=== PATIENT | female | born 1995 | race Caucasian/White ===

== ENCOUNTER 2017-10-14 13:11 | Emergency (ER) | payer OTHER ==
[~2017-10-14] VITALS: Ht 167.6 cm; Wt 55.8 kg
[2017-10-14] MEDS ORDERED: 0.9 % SODIUM CHLORIDE 10 ML DISP.SYRIN. IV PRN (13:45)
[2017-10-14 13:52] LABS: BASO % 0 % (0-3); EOS # 0.3 x10^3/uL (0.0-0.7); EOS % 3 % (0-3); HEMATOCRIT 46.4 % (36.0-47.0); HEMOGLOBIN 15.5 g/dL (12.0-15.5); LYMPH # 1.8 x10^3/uL (1.0-4.8); LYMPH % 24 % (24-48); MEAN CORPUSCULAR HEMOGLOBIN 31 pg (25-35); MEAN CORPUSCULAR HGB CONC 33 g/dL (31-37); MEAN CORPUSCULAR VOLUME 92 fL (79-100); MONO # 0.3 x10^3/uL (0.0-1.1); MONO % 4 % (0-9); NEUT # 5.1 x10^3uL (1.8-7.7); NEUT % 69 % (31-73); PLATELET COUNT 317 x10^3/uL (140-400); RED BLOOD COUNT 5.07 x10^6/uL (3.50-5.40); RED CELL DISTRIBUTION WIDTH 13.2 % (11.5-14.5); WHITE BLOOD COUNT 7.5 x10^3/uL (4.0-11.0)
[2017-10-14 14:05] LABS: ALBUMIN 4.2 g/dL (3.4-5.0); ALBUMIN/GLOBULIN RATIO 1.1 (1.0-1.7); CALCIUM 9.4 mg/dL (8.5-10.1); CREATININE 0.8 mg/dL (0.6-1.0); GFR 89.7; POTASSIUM 3.5 mmol/L (3.5-5.1); TOTAL BILIRUBIN 0.5 mg/dL (0.2-1.0); TOTAL PROTEIN 8.1 g/dL (6.4-8.2)
[2017-10-14] MEDS ORDERED: IV NORMAL SALINE 1,000ML 1,000 ML IV SCH (14:15)
[2017-10-14] MEDS ORDERED: ONDANSETRON PF 4 MG/2 ML VIAL. IV ONE (14:15)
--- NOTE | 2017-10-14 14:37 | RAD ---
US PELVIS W/TV Clinical Indication: LLQ pain Comparison: None. TECHNIQUE: Real-time ultrasound imaging of the pelvis using transabdominal and transvaginal window is performed. Findings: Anteverted uterus. Uterus measures 8.1 x 3.4 x 4.6 cm. No focal abnormality. The endometrial stripe is normal measuring 2 mm. Right ovary measures 3.4 x 1.6 x 2 cm. Left ovary measures 3.1 x 2.4 x 1.4 cm. There is normal blood flow in the ovaries. There are small bilateral follicular cysts. No evidence of adnexal mass. No pelvic free fluid. IMPRESSION: Normal pelvic ultrasound. Electronically signed by: Jono Porter MD (10/14/2017 2:34 PM) [id number]
[2017-10-14 14:43] VITALS: BP 94/58
[2017-10-14 14:50] LABS: BILIRUBIN,URINE NEG (NEG); CLARITY,URINE CLEAR; COLOR,URINE YELLOW; GLUCOSE,URINE NEG (NEG); UROBILINOGEN,URINE 0.2 mg/dL (0.2 mg/dL)
[2017-10-14 14:51] LABS: BACTERIA,URINE FEW /HPF (0-FEW); NITRITE,URINE NEG (NEG); RBC,URINE 0 /HPF (0-2); SQUAMOUS EPITHELIAL CELL,UR FEW /LPF
[2017-10-14] MEDS ORDERED: ONDA4TAB10 SL (15:24)
[2017-10-14] MEDS ORDERED: NAPR-683 PO (15:24)
--- NOTE | 2017-10-14 15:24 | PHYS DOC ---
Past History Past Medical History: Other Past Surgical History: No Surgical History Alcohol Use: None Drug Use: None Adult General Chief Complaint Chief Complaint: ABDOMINAL PAIN HPI HPI 21-year-old female patient with history of multiple chronic problems complaining of episodes of diarrhea for the last 4 or 5 days and states she had 5 or 6 episodes of loose stool every day. Patient complaining of nausea without vomiting and fever and chills and states since last night she had left lower quadrant cramping pain with radiation to her back and rated her pain 6/10. Patient states she was evaluated for STD with negative test one week ago and denies weakness. Review of Systems Review of Systems Constitutional: Denies fever or chills [] Eyes: Denies change in visual acuity, redness, or eye pain [] HENT: Denies nasal congestion or sore throat [] Respiratory: Denies cough or shortness of breath [] Cardiovascular: No additional information not addressed in HPI [] GI: Reports abdominal pain, nausea, diarrhea [] : Denies dysuria or hematuria [] Musculoskeletal: Denies back pain or joint pain [] Integument: Denies rash or skin lesions [] Neurologic: Denies headache, focal weakness or sensory changes [] Endocrine: Denies polyuria or polydipsia [] All other systems were reviewed and found to be within normal limits, except as documented in this note. Current Medications Current Medications Current Medications Medications (Trade) Dose Ordered Sig/David Start Time Stop Time Status Last Admin Dose Admin Ondansetron HCl (Zofran) 4 mg 1X ONCE 10/14/17 14:15 10/14/17 14:16 DC 10/14/17 14:15 4 MG Sodium Chloride (Normal Saline Flush) 10 ml QSHIFT PRN 10/14/17 13:45 Allergies Allergies Allergies Coded Allergies Type Severity Reaction Last Updated Verified No Known Drug Allergies 10/14/17 No Physical Exam Physical Exam Constitutional: Well developed, well nourished, no acute distress, non-toxic appearance. [] HENT: Normocephalic, atraumatic, bilateral external ears normal, oropharynx moist, no oral exudates, nose normal. [] Eyes: PERRLA, EOMI, conjunctiva normal, no discharge. [] Neck: Normal range of motion, no tenderness, supple, no stridor. [] Cardiovascular:Heart rate regular rhythm, no murmur [] Lungs & Thorax: Bilateral breath sounds clear to auscultation [] Abdomen: Bowel sounds normal, soft, no tenderness, no masses, no pulsatile masses. [] Skin: Warm, dry, no erythema, no rash. [] Back: No tenderness, no CVA tenderness. [] Extremities: No tenderness, no cyanosis, no clubbing, ROM intact, no edema. [] Neurologic: Alert and oriented X 3, normal motor function, normal sensory function, no focal deficits noted. [] Psychologic: Affect normal, judgement normal, mood normal. [] Current Patient Data Vital Signs Vital Signs Date Time Temp Pulse Resp B/P (MAP) Pulse Ox O2 Delivery O2 Flow Rate FiO2 10/14/17 14:43 103 18 94/58 (70) 98 Room Air 10/14/17 13:48 98.1 Lab Results Laboratory Tests Test 10/14/17 13:38 10/14/17 13:43 10/14/17 14:25 White Blood Count 7.5 x10^3/uL (4.0-11.0) Red Blood Count 5.07 x10^6/uL (3.50-5.40) Hemoglobin 15.5 g/dL (12.0-15.5) Hematocrit 46.4 % (36.0-47.0) Mean Corpuscular Volume 92 fL (79-100) Mean Corpuscular Hemoglobin 31 pg (25-35) Mean Corpuscular Hemoglobin Concent 33 g/dL (31-37) Red Cell Distribution Width 13.2 % (11.5-14.5) Platelet Count 317 x10^3/uL (140-400) Neutrophils (%) (Auto) 69 % (31-73) Lymphocytes (%) (Auto) 24 % (24-48) Monocytes (%) (Auto) 4 % (0-9) Eosinophils (%) (Auto) 3 % (0-3) Basophils (%) (Auto) 0 % (0-3) Neutrophils # (Auto) 5.1 x10^3uL (1.8-7.7) Lymphocytes # (Auto) 1.8 x10^3/uL (1.0-4.8) Monocytes # (Auto) 0.3 x10^3/uL (0.0-1.1) Eosinophils # (Auto) 0.3 x10^3/uL (0.0-0.7) Basophils # (Auto) 0.0 x10^3/uL (0.0-0.2) Sodium Level 142 mmol/L (136-145) Potassium Level 3.5 mmol/L (3.5-5.1) Chloride Level 103 mmol/L (98-107) Carbon Dioxide Level 26 mmol/L (21-32) Anion Gap 13 (6-14) Blood Urea Nitrogen 16 mg/dL (7-20) Creatinine 0.8 mg/dL (0.6-1.0) Estimated GFR (Cockcroft-Gault) 89.7 BUN/Creatinine Ratio 20 (6-20) Glucose Level 103 mg/dL (70-99) H Calcium Level 9.4 mg/dL (8.5-10.1) Total Bilirubin 0.5 mg/dL (0.2-1.0) Aspartate Amino Transferase (AST) 24 U/L (15-37) Alanine Aminotransferase (ALT) 33 U/L (14-59) Alkaline Phosphatase 47 U/L (46-116) Total Protein 8.1 g/dL (6.4-8.2) Albumin 4.2 g/dL (3.4-5.0) Albumin/Globulin Ratio 1.1 (1.0-1.7) Lipase 190 U/L (73-393) POC Urine HCG, Qualitative hcg negative (Negative) Urine Collection Type Unknown Urine Color Yellow Urine Clarity Clear Urine pH 5.5 Urine Specific [place] 1.025 Urine Protein Neg (NEG-TRACE) Urine Glucose (UA) Neg mg/dL (NEG) Urine Ketones (Stick) Neg mg/dL (NEG) Urine Blood Neg (NEG) Urine Nitrite Neg (NEG) Urine Bilirubin Neg (NEG) Urine Urobilinogen Dipstick 0.2 mg/dL (0.2 mg/dL) Urine Leukocyte Esterase Neg (NEG) Urine RBC 0 /HPF (0-2) Urine WBC 1-4 /HPF (0-4) Urine Squamous Epithelial Cells Few /LPF Urine Bacteria Few /HPF (0-FEW) Urine Mucus Mod /LPF EKG EKG [] Radiology/Procedures Radiology/Procedures [][address] [place] [id number] IMAGING REPORT Signed PATIENT: MERT BUSTOS ACCOUNT: [id number] : 1995 LOCATION: ER AGE: 21 SEX: F EXAM STATUS: REG ER ORD. PHYSICIAN: GINA SAMSON MD REASON: LLQ pain with history of ovarian cyst PROCEDURE: US PELVIS W/TV US PELVIS W/TV Clinical Indication: LLQ pain Comparison: None. TECHNIQUE: Real-time ultrasound imaging of the pelvis using transabdominal and transvaginal window is performed. Findings: Anteverted uterus. Uterus measures 8.1 x 3.4 x 4.6 cm. No focal abnormality. The endometrial stripe is normal measuring 2 mm. Right ovary measures 3.4 x 1.6 x 2 cm. Left ovary measures 3.1 x 2.4 x 1.4 cm. There is normal blood flow in the ovaries. There are small bilateral follicular cysts. No evidence of adnexal mass. No pelvic free fluid. IMPRESSION: Normal pelvic ultrasound. Electronically signed by: Jono Porter MD (10/14/2017 2:34 PM) [id number] DICTATED AND SIGNED BY: JONO PORTER MD DATE: 10/14/17 1431 Course & Med Decision Making Course & Med Decision Making Pertinent Labs and Imaging studies reviewed. (See chart for details) discharge: I've spoken with the patient and/or caregivers. I've explained the patient's condition, diagnosis and treatment plan based on information available to me at this time. I've answered the patient's and/or caregivers questions and addressed any concerns. The patient and/or caregivers have a good understanding the patient's diagnosis, condition and treatment plan as can be expected at this point. Vital signs have been stabilized. The patient's condition is stable for discharge from the emergency department. The patient will pursue further outpatient evaluation with her primary care provider or other designated consulting physician as outlined in the discharge instructions. Patient and/or caregivers are agreeable to this plan of care and follow-up instructions have been explained in detail. The patient and/or caregivers have received these instructions in written format and expressed understanding of these discharge instructions. The patient and her caregivers are aware that if any significant change in condition or worsening of symptoms should prompt him to immediately return to this of the closest emergency department. If an emergent department is not readily available I would encourage him to call 911. [] Omayraon Disclaimer Dragon Disclaimer This electronic medical record was generated, in whole or in part, using a voice recognition dictation system. Departure Departure: Impression: Primary Impression: Left lower quadrant pain Additional Impression: Diarrhea Disposition: 01 HOME, SELF-CARE (at 1522) Condition: IMPROVED Referrals: BAILEY ARGUETA DO (PCP) Patient Instructions: Abdominal Pain, Diarrhea, Diarrhea, [id number] Additional Instructions: Drink plenty of liquids Follow-up with your primary care physician in 3-5 days Return to ER if not getting better Scripts Naproxen (NAPROSYN) 500 Mg Tablet 1 TAB PO BID, #14 TAB 2 Refills Prov: GINA SAMSON MD 10/14/17 Ondansetron (ZOFRAN ODT) 4 Mg Tab.rapdis 1 TAB SL Q8HRS, #15 TAB Prov: GINA SAMSON MD 10/14/17 Problem Qualifiers GINA SAMSON MD Oct 14, 2017 15:24
--- NOTE | 2017-10-15 17:17 | EKG ---
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
== END 2017-10-14 15:46 | disposition home or self-care (01) ==
LOC: ER 13:11
DX: R19.7 Diarrhea, unspecified (principal); R10.32 Left lower quadrant pain
CPT/HCPCS: 36415; 76830; 76856; 80053; 81001; 81025; 83690; 85025; 96361; 96374; 99285; J2405; J7030

== ENCOUNTER 2018-02-03 10:43 | Emergency (ER) | payer OTHER ==
[~2018-02-03] VITALS: Ht 149.9 cm; Wt 55.8 kg
[~2018-02-03 10:43] MED LIST: NAPR-683 PO; ONDA4TAB10 SL
[2018-02-03] MEDS ORDERED: IV NORMAL SALINE 1,000ML 1,000 ML IV SCH (10:57)
--- NOTE | 2018-02-03 11:07 | PHYS DOC ---
Past History Past Medical History: Asthma, Kidney Infection, Kidney Stones, UTI Past Surgical History: No Surgical History Alcohol Use: None Drug Use: None Adult General Chief Complaint Chief Complaint: URINARY RETENTION HPI HPI Patient is a 22-year-old female presents to the emergency department for evaluation. She states that for the past 2 days she has had some "urinary hesitancy", as she has a sensation where she is unable to fully empty her bladder. She states that she has had some blood when she is able to express some urine. She does report some dysuria as well. She states that she has had urinary tract infections in the past, but has also had kidney stones. She does report some flank pain primarily on the left side. She has not had any vomiting. She has not had any vaginal discharge, vaginal bleeding, or abnormal skin or genital lesions. She has not had any genital area pain. She does have a Mirena IUD in place. Urinating seems to worsen her symptoms. There are no alleviating factors to her symptoms. Review of Systems Review of Systems Constitutional: Denies fever or chills [] Eyes: Denies change in visual acuity, redness, or eye pain [] HENT: Denies nasal congestion or sore throat [] Respiratory: Denies cough or shortness of breath [] Cardiovascular: Denies chest pain.[] GI: Denies abdominal pain, nausea, vomiting, bloody stools or diarrhea [] : As per history of present illness.[] Musculoskeletal: Denies back pain or joint pain [] Integument: Denies rash or skin lesions [] Neurologic: Denies headache, focal weakness or sensory changes [] Endocrine: Denies polyuria or polydipsia [] All other systems were reviewed and found to be within normal limits, except as documented in this note. Current Medications Current Medications Current Medications Medications (Trade) Dose Ordered Sig/David Start Time Stop Time Status Last Admin Dose Admin Ketorolac Tromethamine (Toradol) 30 mg 1X ONCE 02/03/18 11:00 02/03/18 11:01 UNV Sodium Chloride 1,000 ml @ 1,000 mls/hr Q1H 02/03/18 10:57 02/03/18 11:56 UNV Allergies Allergies Allergies Coded Allergies Type Severity Reaction Last Updated Verified No Known Drug Allergies 10/14/17 No Physical Exam Physical Exam PHYSICAL EXAM: CONSTITUTIONAL: Well developed, well nourished HEAD: normocephalic, atraumatic EENT: PERRL, EOMI. Conjunctivae normal color, sclerae non-icteric; moist mucous membranes. NECK: Supple, non-tender; no meningismus. LUNGS: Lungs CTA, breathing even and unlabored. Normal air movement. HEART: Regular rate and rhythm, no murmur CHEST: No deformity; non-tender ABDOMEN: There is very mild suprapubic tenderness to palpation. The remainder of the abdomen is soft, and non-tender, no masses or bruits. EXTREM: Normal ROM; no deformity, no calf tenderness. Normal pulses palpable in all extremities. There is no pedal edema. SKIN: No rash; no diaphoresis NEURO: Alert; normal speech and cognition; CN's grossly intact; strength grossly intact without focal deficit. BACK: There is mild left-sided CVA TTP. GENITOURINARY: Normal external genitalia. There is a trace amount of thick whitish vaginal discharge suggestive of candidiasis, that any other cervical or vaginal discharge. No genital lesions were visualized. Bimanual examination was not performed. Exam was performed in the presence of the patient's nurse, Erin. Current Patient Data Lab Results Patient's labs have been reviewed. White blood cell count was noted to be elevated, remainder of labs are unremarkable. Urinalysis shows too numerous to count white and red cells. Wet prep is suggestive of BV. EKG EKG [] Radiology/Procedures Radiology/Procedures [PROCEDURE: CT ABDOMEN PELVIS WO CONTRAST Examination: CT of the abdomen pelvis without contrast History: History of left flank pain, urinary tract infection COMPARISON: None available TECHNIQUE: Axial CT images of the abdomen pelvis were performed without contrast. Coronal and sagittal reformats are performed Exposure: One or more of the following individualized dose reduction techniques were utilized for this examination: 1. Automated exposure control 2. Adjustment of the mA and/or kV according to patient size 3. Use of iterative reconstruction technique FINDINGS: The visualized bibasilar lungs are clear. No evidence of free air identified in the abdomen. The evaluation of the solid organs is limited due to lack of IV contrast. The evaluation of bowel is limited due to lack of oral contrast. The visualized noncontrasted liver, spleen, adrenals grossly appears unremarkable. The gallbladder is mildly distended. The stomach is mildly distended. The visualized pancreas grossly appears unremarkable. The small bowel is nondilated. The appendix is normal. Feces and gas noted in the colon. There is minimal thickening of the rectal wall with minimal surrounding fat stranding. Small amount of free fluid identified in the pelvis. Urinary bladder is mildly distended. Is minimal fat stranding identified in the adnexa. No evidence of intrarenal collecting system calculi or hydronephrosis identified. No evidence of lytic bony destructive lesion. IMPRESSION: 1. No evidence of intrarenal collecting system calculi or hydronephrosis. 2. Small amount of free fluid identified in the pelvis. There is minimal questionable fat stranding identified in the pelvis , and about the rectum, nonspecific. Correlate for pelvic inflammatory disease or proctitis. ] Course & Med Decision Making Course & Med Decision Making Pertinent Labs and Imaging studies reviewed. (See chart for details) [12:20 PM:] The patient's condition remained stable. I discussed test results with the patient. She states she did have an STD check about 2 weeks ago, but is willing to undergo another one for evaluation of PID, although this is not considered likely. She does admit to having some painful bowel movements, and given the inflammation on CT scan I do feel she warrants GI evaluation and she will be referred to GI. Her symptoms certainly could be consistent with a urinary tract infection and she'll be treated as such. The importance of close follow-up was discussed in detail with the patient. The importance of close follow-up for further evaluation if hematuria persists was discussed in detail with the patient. Dragon Disclaimer Dragon Disclaimer This electronic medical record was generated, in whole or in part, using a voice recognition dictation system. Departure Departure: Impression: Primary Impression: UTI (urinary tract infection) Additional Impression: Hematuria Disposition: 01 HOME, SELF-CARE Condition: STABLE Referrals: BAILEY ARGUETA DO (PCP) Patient Instructions: Bacterial Vaginosis, Hematuria, Adult, Proctitis, Urinary Tract Infection Additional Instructions: Follow-up with Dr. Kahlil Allen, gastroenterology, , for further evaluation. Scripts Phenazopyridine Hcl (PYRIDIUM) 200 Mg Tablet 200 MG PO BID for 3 Days, #6 TAB Prov: JEAN BULLOCK MD 02/03/18 Sulfamethoxazole/Trimethoprim (BACTRIM 400-80 MG TABLET) 1 Each Tablet 1 TAB PO BID, #14 TAB Prov: JEAN BULLOCK MD 02/03/18 Problem Qualifiers JEAN BULLOCK MD Feb 03, 2018 11:07
[2018-02-03 11:19] LABS: BASO # 0.1 x10^3/uL (0.0-0.2); BASO % 0 % (0-3); EOS # 0.3 x10^3/uL (0.0-0.7); EOS % 2 % (0-3); HEMATOCRIT 41.3 % (36.0-47.0); HEMOGLOBIN 13.8 g/dL (12.0-15.5); LYMPH # 1.6 x10^3/uL (1.0-4.8); LYMPH % 10 % (24-48); MEAN CORPUSCULAR HEMOGLOBIN 30 pg (25-35); MEAN CORPUSCULAR HGB CONC 34 g/dL (31-37); MEAN CORPUSCULAR VOLUME 90 fL (79-100); MONO # 0.5 x10^3/uL (0.0-1.1); MONO % 3 % (0-9); NEUT # 13.3 x10^3uL (1.8-7.7); NEUT % 84 % (31-73); PLATELET COUNT 286 x10^3/uL (140-400); RED BLOOD COUNT 4.58 x10^6/uL (3.50-5.40); RED CELL DISTRIBUTION WIDTH 12.5 % (11.5-14.5); WHITE BLOOD COUNT 15.8 x10^3/uL (4.0-11.0)
[2018-02-03 11:28] LABS: PREG TEST PT QUAL NEGATIVE (NEG)
[2018-02-03] MEDS ORDERED: KETOROLAC 30 MG/ML VIAL. IV ONE (11:30)
[2018-02-03 11:33] LABS: ALBUMIN 3.8 g/dL (3.4-5.0); CREATININE 0.7 mg/dL (0.6-1.0); GFR 103.7; TOTAL BILIRUBIN 0.3 mg/dL (0.2-1.0); TOTAL PROTEIN 7.5 g/dL (6.4-8.2)
[2018-02-03 11:39] LABS: % BANDS 2 % (0-9); % BASOS 1 % (0-3); % EOS 3 % (0-5); % LYMPHS 7 % (24-48); % MONOS 2 % (0-10); % SEGS 85 % (35-66)
[2018-02-03 11:40] LABS: PLT ESTIMATE ADEQUATE (ADEQUATE); TOXIC GRANULATION SLIGHT; TOXIC VACUOLATION SLIGHT
--- NOTE | 2018-02-03 12:01 | RAD ---
Examination: CT of the abdomen pelvis without contrast History: History of left flank pain, urinary tract infection COMPARISON: None available TECHNIQUE: Axial CT images of the abdomen pelvis were performed without contrast. Coronal and sagittal reformats are performed Exposure: One or more of the following individualized dose reduction techniques were utilized for this examination: 1. Automated exposure control 2. Adjustment of the mA and/or kV according to patient size 3. Use of iterative reconstruction technique FINDINGS: The visualized bibasilar lungs are clear. No evidence of free air identified in the abdomen. The evaluation of the solid organs is limited due to lack of IV contrast. The evaluation of bowel is limited due to lack of oral contrast. The visualized noncontrasted liver, spleen, adrenals grossly appears unremarkable. The gallbladder is mildly distended. The stomach is mildly distended. The visualized pancreas grossly appears unremarkable. The small bowel is nondilated. The appendix is normal. Feces and gas noted in the colon. There is minimal thickening of the rectal wall with minimal surrounding fat stranding. Small amount of free fluid identified in the pelvis. Urinary bladder is mildly distended. Is minimal fat stranding identified in the adnexa. No evidence of intrarenal collecting system calculi or hydronephrosis identified. No evidence of lytic bony destructive lesion. IMPRESSION: 1. No evidence of intrarenal collecting system calculi or hydronephrosis. 2. Small amount of free fluid identified in the pelvis. There is minimal questionable fat stranding identified in the pelvis , and about the rectum, nonspecific. Correlate for pelvic inflammatory disease or proctitis. Electronically signed by: Phil Razo MD (02/03/2018 11:58 AM) [id number]
[2018-02-03 12:08] LABS: BILIRUBIN,URINE NEG (NEG); CLARITY,URINE TURBID; COLOR,URINE YELLOW; GLUCOSE,URINE NEG (NEG); NITRITE,URINE NEG (NEG); UROBILINOGEN,URINE 0.2 mg/dL (0.2 mg/dL)
[2018-02-03 12:09] LABS: BACTERIA,URINE MOD /HPF (0-FEW); RBC,URINE >40 /HPF (0-2); SQUAMOUS EPITHELIAL CELL,UR FEW /LPF; WBC,URINE >40 /HPF (0-4)
[2018-02-03] MEDS ORDERED: SULF1TAB23 PO (12:26)
[2018-02-03] MEDS ORDERED: cefTRIAXone IV Push 1 GM VIAL. IVP ONE (12:45)
[2018-02-03] MEDS ORDERED: PHEN-318 PO (12:55)
[2018-02-03 13:10] VITALS: BP 102/55
[2018-02-03] MEDS ORDERED: metroNIDAZOLE 500 MG TABLET ONE (13:11)
[2018-02-03] MEDS ORDERED: metroNIDAZOLE 500 MG TABLET PO ONE (13:15)
[2018-02-03] MEDS ORDERED: PHENAZOPYRIDINE 200 MG TABLET. PO ONE (13:30)
[2018-02-04 14:13] LABS: CHLAMYDIA PROBE Negative (Negative)
== END 2018-02-03 13:20 | disposition home or self-care (01) ==
LOC: ER 10:43
DX: N39.0 Urinary tract infection, site not specified (principal); R31.9 Hematuria, unspecified; J45.909 Unspecified asthma, uncomplicated; Z87.442 Personal history of urinary calculi; Z87.440 Personal history of urinary (tract) infections
CPT/HCPCS: 36415; 74176; 80053; 81001; 83690; 84703; 85007; 85025; 87086; 87491; 87591; 96374; 96375; 99285; J0696; J1885; Q0111; 87186; J7030

== ENCOUNTER 2018-03-30 15:37 | Emergency (ER) | payer OTHER ==
[~2018-03-30] VITALS: Ht 149.9 cm; Wt 55.3 kg
[~2018-03-30 15:37] MED LIST changes: +PHEN-318 PO; +SULF1TAB23 PO
[2018-03-30 15:40] VITALS: BP 112/67
[2018-03-30] MEDS ORDERED: MUPI15CR TP (16:07)
--- NOTE | 2018-03-30 16:24 | ED.ADGEN ---
Past History Past Medical History: Asthma, Kidney Infection, Kidney Stones, UTI Past Surgical History: No Surgical History Alcohol Use: None Drug Use: None Adult General Chief Complaint Chief Complaint Left forearm, lesion HPI HPI Patient is a 19-year-old female seen at an outside emergency department 2 days ago and had stated in her left before meals space who presents with superficial skin tear from Band-Aid placed over IV insertion site. Patient states that Band- Aid tore her skin when removed. No surrounding swelling, erythema, tenderness. Patient was seen at outside facility for dehydration.No other acute symptoms or complaints. No other acute symptoms or complaints.[] Review of Systems Review of Systems Review of symptoms as per history of present illness. All other review symptoms are negative. All other systems were reviewed and found to be within normal limits, except as documented in this note. Allergies Allergies Allergies Coded Allergies Type Severity Reaction Last Updated Verified No Known Drug Allergies 10/14/17 No Physical Exam Physical Exam Constitutional: Well developed, well nourished, no acute distress, non-toxic appearance. [] Extremities: Superficial skin tear, approximately 3 mm left before meals space with mild erythema, no surrounding swelling erythema streaking or weeping.[] Neurologic: Alert and oriented X 3, normal motor function, normal sensory function, no focal deficits noted. [] Psychologic: Affect normal, judgement normal, mood normal. [] EKG EKG [] Radiology/Procedures Radiology/Procedures [] Course & Med Decision Making Course & Med Decision Making Pertinent Labs and Imaging studies reviewed. (See chart for details) [Anterior with concern of possible early cellulitis. Recommend topical antibiotics, PCP follow up. ] Final Impression Final Impression [1 . Skin tear to left forearm ] Draglissette Disclaimer Dragon Disclaimer This electronic medical record was generated, in whole or in part, using a voice recognition dictation system. MORRIS EDUARDO DO Mar 30, 2018 16:24
== END 2018-03-30 16:10 | disposition home or self-care (01) ==
LOC: ER 15:37
DX: S51.812A Laceration without foreign body of left forearm, initial encounter (principal); J45.909 Unspecified asthma, uncomplicated; Z87.440 Personal history of urinary (tract) infections; Z87.442 Personal history of urinary calculi; X58.XXXA Exposure to other specified factors, initial encounter; Y93.89 Activity, other specified; Y92.89 Other specified places as the place of occurrence of the external cause; Y99.8 Other external cause status
CPT/HCPCS: 99283

== ENCOUNTER 2018-05-15 17:13 | Emergency (ER) | payer OTHER ==
[~2018-05-15] VITALS: Ht 149.9 cm; Wt 55.3 kg
[2018-05-15 17:13] VITALS: BP 118/68
[~2018-05-15 17:13] MED LIST changes: +MUPI15CR TP
--- NOTE | 2018-05-15 18:10 | PHYS DOC ---
Past History Past Medical History: Other Past Surgical History: No Surgical History Alcohol Use: None Drug Use: None Adult General Chief Complaint Chief Complaint: SKIN PROBLEM HPI HPI 22-year-old female presents with anal pain. The patient was recently diagnosed with an ear infection and treated with amoxicillin for 10 days. She developed some diarrhea the last few days of this. She continues to have 7-15 stools a day. She started to have itching and pain 3 days ago. It has gotten worse and she is now very raw and tender. She has not had any vaginal itching. She denies any anal intercourse. She has not had vaginal intercourse in a week. The patient tried a topical steroid today but has only used one dose. Patient denies fever or chills. She has no other complaints. Review of Systems Review of Systems Constitutional: Denies fever or chills [] Eyes: Denies change in visual acuity, redness, or eye pain [] HENT: Denies nasal congestion or sore throat [] Respiratory: Denies cough or shortness of breath [] Cardiovascular: No additional information not addressed in HPI [] GI: Denies abdominal pain, nausea, vomiting, bloody stools or diarrhea [] : Denies dysuria or hematuria [] Musculoskeletal: Denies back pain or joint pain [] Integument: Painful skin around the anus[] Neurologic: Denies headache, focal weakness or sensory changes [] Endocrine: Denies polyuria or polydipsia [] All other systems were reviewed and found to be within normal limits, except as documented in this note. Allergies Allergies Allergies Coded Allergies Type Severity Reaction Last Updated Verified No Known Drug Allergies 10/14/17 No Physical Exam Physical Exam Constitutional: Well developed, well nourished, no acute distress, non-toxic appearance. [] HENT: Normocephalic, atraumatic, bilateral external ears normal, oropharynx moist, no oral exudates, nose normal. [] Eyes: PERRLA, EOMI, conjunctiva normal, no discharge. [] Neck: Normal range of motion, no tenderness, supple, no stridor. [] Cardiovascular:Heart rate regular rhythm, no murmur [] Lungs & Thorax: Bilateral breath sounds clear to auscultation [] Abdomen: Bowel sounds normal, soft, no tenderness, no masses, no pulsatile masses. [] Skin: Erythematous confluent rash with satellite lesions around the anus and inferior outer labia. [] Back: No tenderness, no CVA tenderness. [] Extremities: No tenderness, no cyanosis, no clubbing, ROM intact, no edema. [] Neurologic: Alert and oriented X 3, normal motor function, normal sensory function, no focal deficits noted. [] Psychologic: Affect normal, judgement normal, mood normal. [] EKG EKG [] Radiology/Procedures Radiology/Procedures [] Course & Med Decision Making Course & Med Decision Making Pertinent Labs and Imaging studies reviewed. (See chart for details) The patient's anus appears to be consistent with yeast infection. I will treat her w q48 hours for 3 doses. She is stable for discharge at this time. I recommended Tucks pads for comfort. [] Dragon Disclaimer Dragon Disclaimer This electronic medical record was generated, in whole or in part, using a voice recognition dictation system. Departure Departure: Referrals: NON,STAFF (PCP) MORRIS HOANG DO May 15, 2018 18:10
[2018-05-15] MEDS ORDERED: FLUC150T PO (18:13)
== END 2018-05-15 18:29 | disposition home or self-care (01) ==
LOC: ER 17:13
DX: B37.89 Other sites of candidiasis (principal); R19.7 Diarrhea, unspecified
CPT/HCPCS: 99283

== ENCOUNTER 2018-12-02 21:29 | Emergency (ER) | payer OTHER ==
[~2018-12-02] VITALS: Ht 152.4 cm; Wt 63.5 kg
[~2018-12-02 21:29] MED LIST changes: +FLUC150T PO
[2018-12-02] MEDS ORDERED: IV NORMAL SALINE 1,000ML 1,000 ML IV SCH (22:10)
[2018-12-02] MEDS ORDERED: ONDANSETRON PF 4 MG/2 ML VIAL. IV ONE (22:15)
[2018-12-02 22:54] LABS: BASO % 0 % (0-3); EOS # 0.1 x10^3/uL (0.0-0.7); EOS % 1 % (0-3); HEMATOCRIT 35.9 % (36.0-47.0); HEMOGLOBIN 12.2 g/dL (12.0-15.5); LYMPH # 1.7 x10^3/uL (1.0-4.8); LYMPH % 18 % (24-48); MEAN CORPUSCULAR HEMOGLOBIN 31 pg (25-35); MEAN CORPUSCULAR HGB CONC 34 g/dL (31-37); MEAN CORPUSCULAR VOLUME 90 fL (79-100); MONO # 0.5 x10^3/uL (0.0-1.1); MONO % 5 % (0-9); NEUT # 7.2 x10^3uL (1.8-7.7); NEUT % 76 % (31-73); PLATELET COUNT 262 x10^3/uL (140-400); RED CELL DISTRIBUTION WIDTH 13.2 % (11.5-14.5); WHITE BLOOD COUNT 9.5 x10^3/uL (4.0-11.0)
[2018-12-02 23:01] LABS: BACTERIA,URINE FEW /HPF (0-FEW); BILIRUBIN,URINE NEG (NEG); CLARITY,URINE CLEAR; COLOR,URINE YELLOW; GLUCOSE,URINE NEG (NEG); NITRITE,URINE NEG (NEG); RBC,URINE OCC /HPF (0-2); SQUAMOUS EPITHELIAL CELL,UR OCC /LPF; UROBILINOGEN,URINE 0.2 mg/dL (0.2 mg/dL)
[2018-12-02 23:07] LABS: ALBUMIN 2.8 g/dL (3.4-5.0); ALBUMIN/GLOBULIN RATIO 0.7 (1.0-1.7); CALCIUM 8.8 mg/dL (8.5-10.1); CREATININE 0.5 mg/dL (0.6-1.0); GFR 151.6; POTASSIUM 3.5 mmol/L (3.5-5.1); TOTAL BILIRUBIN 0.1 mg/dL (0.2-1.0); TOTAL PROTEIN 6.8 g/dL (6.4-8.2)
[2018-12-02] MEDS ORDERED: NITR100C62 PO (23:39)
[2018-12-02] MEDS ORDERED: ONDA4TAB12 PO (23:39)
--- NOTE | 2018-12-02 23:39 | PHYS DOC ---
Past History Past Medical History: UTI, Other Past Surgical History: No Surgical History Alcohol Use: None Drug Use: None Adult General Chief Complaint Chief Complaint: VOMITING IN HPI HPI Patient is a 23 year old female who presents with complaint of fever, vomiting, and body aches. The patient states that she is 18 weeks . States that she started having fever, vomiting, loose stools, and abdominal cramping that started yesterday and has worsened today. Denies any known sick contacts. States that she is currently following and [facility] for her care. Was last seen at her ten-week appointment but has not been seen recently. Denies any urinary symptoms. Has had decreased oral intake due to nausea and vomiting. States that she is getting abdominal cramping just above her umbilicus. Denies any vaginal bleeding, pelvic pain, or abnormal vaginal discharge. Has not taken any medications for her symptoms. Review of Systems Review of Systems Constitutional: Fever, chills[] Eyes: Denies change in visual acuity, redness, or eye pain [] HENT: Denies nasal congestion or sore throat [] Respiratory: Denies cough or shortness of breath [] Cardiovascular: Denies chest pain or edema[] GI: Nausea, vomiting, diarrhea, abdominal cramps[] : Denies dysuria or hematuria [] Musculoskeletal: Denies back pain or joint pain [] Integument: Denies rash or skin lesions [] Neurologic: Denies headache, focal weakness or sensory changes [] All other systems were reviewed and found to be within normal limits, except as documented in this note. Current Medications Current Medications Current Medications Medications (Trade) Dose Ordered Sig/[facility] Start Time Stop Time Status Last Admin Dose Admin Ondansetron HCl (Zofran) 4 mg 1X ONCE 12/02/18 22:15 12/02/18 22:22 DC 12/02/18 22:46 4 MG Sodium Chloride 1,000 ml @ 1,000 mls/hr Q1H 12/02/18 22:10 12/02/18 23:09 DC 12/02/18 22:47 1,000 MLS/HR Allergies Allergies Allergies Coded Allergies Type Severity Reaction Last Updated Verified No Known Drug Allergies 10/14/17 No Physical Exam Physical Exam Constitutional: Well developed, well nourished, no acute distress, non-toxic appearance. [] HENT: Normocephalic, atraumatic, bilateral external ears normal, oropharynx moist, no oral exudates, nose normal. [] Eyes: PERRLA, EOMI, conjunctiva normal, no discharge. [] Neck: Normal range of motion, no tenderness, supple, no stridor. [] Cardiovascular:Heart rate regular rhythm, no murmur [] Lungs & Thorax: Bilateral breath sounds clear to auscultation [] Abdomen: Bowel sounds normal, soft, no tenderness, no masses, no pulsatile masses. [] Skin: Warm, dry, no erythema, no rash. [] Back: No tenderness, no CVA tenderness. [] Extremities: No tenderness, no cyanosis, no clubbing, ROM intact, no edema. [] Neurologic: Alert and oriented X 3, normal motor function, normal sensory f unction, no focal deficits noted. [] Psychologic: Affect normal, judgement normal, mood normal. [] Current Patient Data Lab Results Laboratory Tests Test 12/02/18 22:15 12/02/18 22:35 Urine Collection Type Unknown Urine Color Yellow Urine Clarity Clear Urine pH 5.5 Urine Specific [place] >=1.030 Urine Protein Neg (NEG-TRACE) Urine Glucose (UA) Neg mg/dL (NEG) Urine Ketones (Stick) Neg mg/dL (NEG) Urine Blood Trace (NEG) Urine Nitrite Neg (NEG) Urine Bilirubin Neg (NEG) Urine Urobilinogen Dipstick 0.2 mg/dL (0.2 mg/dL) Urine Leukocyte Esterase Trace (NEG) Urine RBC Occ /HPF (0-2) Urine WBC 5-10 /HPF (0-4) Urine Squamous Epithelial Cells Occ /LPF Urine Bacteria Few /HPF (0-FEW) Urine Mucus Slight /LPF White Blood Count 9.5 x10^3/uL (4.0-11.0) Red Blood Count 4.00 x10^6/uL (3.50-5.40) Hemoglobin 12.2 g/dL (12.0-15.5) Hematocrit 35.9 % (36.0-47.0) L Mean Corpuscular Volume 90 fL (79-100) Mean Corpuscular Hemoglobin 31 pg (25-35) Mean Corpuscular Hemoglobin Concent 34 g/dL (31-37) Red Cell Distribution Width 13.2 % (11.5-14.5) Platelet Count 262 x10^3/uL (140-400) Neutrophils (%) (Auto) 76 % (31-73) H Lymphocytes (%) (Auto) 18 % (24-48) L Monocytes (%) (Auto) 5 % (0-9) Eosinophils (%) (Auto) 1 % (0-3) Basophils (%) (Auto) 0 % (0-3) Neutrophils # (Auto) 7.2 x10^3uL (1.8-7.7) Lymphocytes # (Auto) 1.7 x10^3/uL (1.0-4.8) Monocytes # (Auto) 0.5 x10^3/uL (0.0-1.1) Eosinophils # (Auto) 0.1 x10^3/uL (0.0-0.7) Basophils # (Auto) 0.0 x10^3/uL (0.0-0.2) Sodium Level 139 mmol/L (136-145) Potassium Level 3.5 mmol/L (3.5-5.1) Chloride Level 105 mmol/L (98-107) Carbon Dioxide Level 24 mmol/L (21-32) Anion Gap 10 (6-14) Blood Urea Nitrogen 9 mg/dL (7-20) Creatinine 0.5 mg/dL (0.6-1.0) L Estimated GFR (Cockcroft-Gault) 151.6 BUN/Creatinine Ratio 18 (6-20) Glucose Level 86 mg/dL (70-99) Calcium Level 8.8 mg/dL (8.5-10.1) Total Bilirubin 0.1 mg/dL (0.2-1.0) L Aspartate Amino Transferase (AST) 19 U/L (15-37) Alanine Aminotransferase (ALT) 21 U/L (14-59) Alkaline Phosphatase 42 U/L (46-116) L Total Protein 6.8 g/dL (6.4-8.2) Albumin 2.8 g/dL (3.4-5.0) L Albumin/Globulin Ratio 0.7 (1.0-1.7) L Lipase 157 U/L (73-393) EKG EKG Not performed[] Radiology/Procedures Radiology/Procedures Not performed[] Course & Med Decision Making Course & Med Decision Making Pertinent Labs and Imaging studies reviewed. (See chart for details) Patient was given IV fluids and Zofran in the emergency department with improvement in symptoms. heart rate was measured by Doppler at 157 bpm. Blood work was unremarkable. Urinalysis showed bacteriuria and pyuria. Prescribed Macrobid for 7 day course of treatment. Despite this I think the patient's symptoms are primarily secondary to viral gastrointestinal infection. Was also prescribed Zofran for nausea. Advised follow-up with doctor in the next 4 days for reevaluation and return to emergency department for any worsening symptoms. Patient was understanding and in agreement with treatment plan.[] Dragon Disclaimer Dragon Disclaimer This electronic medical record was generated, in whole or in part, using a voice recognition dictation system. Departure Departure: Impression: Primary Impression: Nausea and vomiting Additional Impressions: Diarrhea Second trimester Abdominal cramps UTI (urinary tract infection) Disposition: 01 HOME, SELF-CARE Condition: IMPROVED Referrals: NON,STAFF (PCP) Patient Instructions: Abdominal Pain During , Diarrhea, Nausea and Vomiting, - Urinary Tract Infection Additional Instructions: Follow-up with your POLITICAL ANTHROPOLOGIST in the next 4 days for reevaluation. Return to emergency department for any worsening symptoms. Scripts Ondansetron (ONDANSETRON ODT) 4 Mg Tab.rapdis 1 TAB PO PRN Q6-8HRS PRN for NAUSEA/VOMITING, #16 TAB Prov: ELIANA PRICE MD 12/02/18 Nitrofurantoin Monohyd/M-Cryst (MACROBID 100 MG CAPSULE) 100 Mg Capsule 1 CAP PO BID, #14 CAP Prov: ELIANA PRICE MD 12/02/18 Problem Qualifiers Primary Impression: Nausea and vomiting Vomiting type: unspecified Vomiting Intractability: non-intractable Qualified Codes: R11.2 - Nausea with vomiting, unspecified Additional Impressions: Diarrhea Diarrhea type: presumed infectious Qualified Codes: R19.7 - Diarrhea, unspecified UTI (urinary tract infection) Urinary tract infection type: site unspecified Hematuria presence: without hematuria Qualified Codes: N39.0 - Urinary tract infection, site not specified ELIANA PRICE MD December 02, 2018 23:39
[2018-12-02 23:50] VITALS: BP 115/59
== END 2018-12-02 23:50 | disposition home or self-care (01) ==
LOC: ER 21:29
DX: O23.42 Unspecified infection of urinary tract in pregnancy, second trimester (principal); O21.9 Vomiting of pregnancy, unspecified; R19.7 Diarrhea, unspecified; Z87.440 Personal history of urinary (tract) infections; Z3A.18 18 weeks gestation of pregnancy
CPT/HCPCS: 36415; 80053; 81001; 83690; 85025; 87086; 96361; 96374; 99285; J2405; J7030

== ENCOUNTER 2019-03-26 22:25 | Emergency (ER) | payer OTHER ==
[~2019-03-26] VITALS: Ht 152.4 cm; Wt 83.0 kg
[~2019-03-26 22:25] MED LIST changes: +NITR100C62 PO; +ONDA4TAB12 PO
--- NOTE | 2019-03-26 22:28 | ED.ADGEN ---
Past History Past Medical History: Anxiety, UTI, Other Past Surgical History: No Surgical History Alcohol Use: None Drug Use: Marijuana Adult General Chief Complaint Chief Complaint ".. I got this bump on my belly button.. I ve had it for over a month... but it is more tender tonight... and sticking out... I am .. and due on May.06....I ve all ready had 7 miscarries.. ....".. My Ob said to go to the ER... " [facility] HPI Patient is a 23 year old female who presents with above hx and complaints of umbilicus hernia. Pt. has had hernia for past month. Patient states however the last week or so it's become more tender. And more prominent. Patient normally follows at [facility]. Patient has had previous total 8 pregnancies 6 miscarriages and 1 live and current . No history of STDs. Has had 8 lifetime sexual partners. Last follow of her OB approximate 4 weeks ago. She is due May 06. Patient primary OB is Dr Hinkle . Patient is Follow-up appointment is April 08. Patient denies any intake bad food. Patient denies any trauma. Patient denies any specific ill contacts. Patient denies any vaginal discharge or bleeding. Patient did have a normal stool today. Patient is taking vitamin. Review of Systems Review of Systems Constitutional: Denies fever or chills [] Eyes: Denies change in visual acuity, redness, or eye pain [] HENT: Denies nasal congestion or sore throat [] Respiratory: Denies cough or shortness of breath [] Cardiovascular: No additional information not addressed in HPI [] GI: She complains of umbilicus abdominal pain, nausea. Denies, vomiting, bloody stools or diarrhea [] : Denies dysuria or hematuria [] Musculoskeletal: Denies back pain or joint pain [] Integument: Denies rash or skin lesions [] Neurologic: Denies headache, focal weakness or sensory changes [] Endocrine: Denies polyuria or polydipsia [] All other systems were reviewed and found to be within normal limits, except as documented in this note. Family History Family History Noncontributory Current Medications Current Medications Current Medications Medications (Trade) Dose Ordered Sig/[facility] Start Time Stop Time Status Last Admin Dose Admin Acetaminophen/ Hydrocodone Bitart (Lortab 5/325) 2 tab 1X ONCE 03/27/19 01:00 03/27/19 01:46 DC 03/27/19 01:02 2 TAB Lactated Ringer's 1,000 ml @ 1,000 mls/hr Q1H 03/27/19 00:47 03/27/19 01:46 DC 03/27/19 01:08 1,000 MLS/HR Ondansetron HCl (Zofran) 4 mg 1X ONCE 03/27/19 01:00 03/27/19 01:46 DC 03/27/19 01:08 4 MG Allergies Allergies Allergies Coded Allergies Type Severity Reaction Last Updated Verified No Known Drug Allergies 10/14/17 No Physical Exam Physical Exam Constitutional: Moderate acute distress, non-toxic appearance. [] HENT: Normocephalic, atraumatic, bilateral external ears normal, oropharynx moist, no oral exudates, nose normal. [] Eyes: PERRLA, EOMI, conjunctiva normal, no discharge. [] Neck: Normal range of motion, no tenderness, supple, no stridor. [] Cardiovascular:Heart rate regular rhythm, no murmur [] Lungs & Thorax: Bilateral breath sounds equal apex auscultation [] Abdomen: Bowel sounds normal, soft, umbilicus tenderness , umbilicus hernia appears to be easily reduced,, FHR 160, movement, no pulsatile masses. [] Gravid. She declines pelvic exams this time. Skin: Warm, dry, no erythema, no rash. [] Back: No tenderness, no CVA tenderness. [] Extremities: No tenderness, no cyanosis, no clubbing, ROM intact, no edema. [] Neurologic: Alert and oriented X 3, normal motor function, normal sensory function, no focal deficits noted. [] Psychologic: Affect very anxious and tearful judgement normal, mood breast. Current Patient Data Vital Signs Vital Signs Date Time Temp Pulse Resp B/P (MAP) Pulse Ox O2 Delivery O2 Flow Rate FiO2 03/26/19 22:45 98.2 103 20 97 Room Air Lab Results Laboratory Tests Test 03/26/19 00:25 03/27/19 00:39 03/27/19 01:00 Urine Collection Type Void Urine Color Yellow Urine Clarity Hazy Urine pH 6.0 Urine Specific [place] 1.025 Urine Protein Neg (NEG-TRACE) Urine Glucose (UA) Neg mg/dL (NEG) Urine Ketones (Stick) Neg mg/dL (NEG) Urine Blood Neg (NEG) Urine Nitrite Neg (NEG) Urine Bilirubin Neg (NEG) Urine Urobilinogen Dipstick 0.2 mg/dL (0.2 mg/dL) Urine Leukocyte Esterase Neg (NEG) Urine RBC 1-2 /HPF (0-2) Urine WBC 5-10 /HPF (0-4) Urine Squamous Epithelial Cells Mod /LPF Urine Bacteria Mod /HPF (0-FEW) Urine Opiates Screen Neg (NEG) Urine Methadone Screen Neg (NEG) Urine Barbiturates Neg (NEG) Urine Phencyclidine Screen Neg (NEG) Urine Amphetamine/Methamphetamine Neg (NEG) Urine Benzodiazepines Screen Neg (NEG) Urine Cocaine Screen Neg (NEG) Urine Cannabinoids Screen Pos (NEG) Urine Ethyl Alcohol Neg (NEG) POC Urine HCG, Qualitative hcg positive (Negative) White Blood Count 10.5 x10^3/uL (4.0-11.0) Red Blood Count 3.72 x10^6/uL (3.50-5.40) Hemoglobin 9.8 g/dL (12.0-15.5) L Hematocrit 30.1 % (36.0-47.0) L Mean Corpuscular Volume 81 fL (79-100) Mean Corpuscular Hemoglobin 26 pg (25-35) Mean Corpuscular Hemoglobin Concent 33 g/dL (31-37) Red Cell Distribution Width 15.4 % (11.5-14.5) H Platelet Count 302 x10^3/uL (140-400) Neutrophils (%) (Auto) 77 % (31-73) H Lymphocytes (%) (Auto) 15 % (24-48) L Monocytes (%) (Auto) 6 % (0-9) Eosinophils (%) (Auto) 1 % (0-3) Basophils (%) (Auto) 0 % (0-3) Neutrophils # (Auto) 8.1 x10^3uL (1.8-7.7) H Lymphocytes # (Auto) 1.6 x10^3/uL (1.0-4.8) Monocytes # (Auto) 0.6 x10^3/uL (0.0-1.1) Eosinophils # (Auto) 0.1 x10^3/uL (0.0-0.7) Basophils # (Auto) 0.0 x10^3/uL (0.0-0.2) Segmented Neutrophils % 73 % (35-66) H Band Neutrophils % 3 % (0-9) Lymphocytes % 18 % (24-48) L Monocytes % 3 % (0-10) Eosinophils % 2 % (0-5) Metamyelocytes % 1 % (0-0) H Hypersegmented Neutrophils Present Toxic Granulation Mod Platelet Estimate Adequate (ADEQUATE) Giant Platelets Occ Polychromasia Slight Hypochromasia Slight Anisocytosis Slight Microcytosis Slight Macrocytosis Slight Tear Drop Cells Occ Ovalocytes Occ Maternal Serum HCG Beta Subunit 8672 mIU/mL (0-6) H Sodium Level 138 mmol/L (136-145) Potassium Level 3.5 mmol/L (3.5-5.1) Chloride Level 104 mmol/L (98-107) Carbon Dioxide Level 23 mmol/L (21-32) Anion Gap 11 (6-14) Blood Urea Nitrogen 5 mg/dL (7-20) L Creatinine 0.5 mg/dL (0.6-1.0) L Estimated GFR (Cockcroft-Gault) 151.6 Glucose Level 80 mg/dL (70-99) Calcium Level 8.9 mg/dL (8.5-10.1) Total Bilirubin 0.3 mg/dL (0.2-1.0) Direct Bilirubin 0.1 mg/dL (0.0-0.2) Aspartate Amino Transferase (AST) 19 U/L (15-37) Alanine Aminotransferase (ALT) 10 U/L (14-59) L Alkaline Phosphatase 93 U/L (46-116) Total Protein 6.7 g/dL (6.4-8.2) Albumin 2.4 g/dL (3.4-5.0) L Amylase Level 56 U/L (25-115) Lipase 125 U/L (73-393) EKG EKG [] Radiology/Procedures Radiology/Procedures [][address] [address] IMAGING REPORT Signed PATIENT: MERT CASTRO ACCOUNT: [id number] : 1995 LOCATION: ER AGE: 23 SEX: F EXAM STATUS: REG ER ORD. PHYSICIAN: RICCI TOLENTINO MD REASON: abdomen pain, umbilicus hernia, Hx. Preg. x8- l live 6 mis PROCEDURE: OB LIMITED Examination: Obstetric ultrasound limited HISTORY: History of abdominal pain COMPARISON: None available FINDINGS: Single living intrauterine identified with heart rate of 157 bpm. movement, cardiac activity, 4 chamber heart seen. position is cephalic Amniotic fluid index is 6.5 cm. Biparietal diameter measures 8.7 cm corresponding to 35 weeks and 1 day. Abdominal circumference measures 30.8 cm corresponding to 34 weeks and 6 days Head circumference measures 30.1 cm corresponding to 33 weeks and 3 days. Head circumference to abdominal circumference ratio 0.98 Gestational age is 34 weeks and 3 days. The estimated date of delivery 05/05/2019 At the site of lump in the anterior abdominal wall there is a hernia measuring 4 cm in transverse dimension with the neck of the hernia measuring 7.7 mm in transverse dimension containing fat and fluid within. The hernia increases with Valsalva. IMPRESSION: 1. Single living intrauterine as described above. 2. At the site of lump in the anterior abdominal wall there is a hernia measuring 4 cm in transverse dimension with the neck of the hernia measuring 7.7 mm in transverse dimension containing fat and fluid within. Electronically signed by: Phil Stewart MD (03/27/2019 2:53 AM) [facility] DICTATED AND SIGNED BY: PHIL STEWART MD DATE: 03/27/19 0253 CC: RICCI TOELNTINO MD; PCP,UNKNOWN ~ Course & Med Decision Making Course & Med Decision Making Pertinent Labs and Imaging studies reviewed. (See chart for details) Patient to keep follow up with [facility]. Patient to present at Hospital where she did plans to have delivery. She encouraged not to smoke or use marijuana. Patient push fluids. Patient take smaller meals more frequently. Can use [place] bandage help retain the umbilicus hernia. Patient to follow-up cultures collected here. Patient take Tylenol for pain 4. For severe pain may take Percocet. Must avoid constipation. Patient continue her vitamins. Patient review all labs with her primary care and [facility]. Patient take disc of her ultrasound on her next follow-up appointment. If any concerns attempt to get an earlier appointment with her primary care./obgy.. [] Final Impression Final Impression 1. Umbilicus Hernia- 4 cm by US- reduces 2. IUP- 34W.3d 3. Blood Type A+ 4. HgB = 9.5 5. BHCG= 8672 6. EDC= 05/05/2019 7. Marijuana Use [] Dragon Disclaimer Dragon Disclaimer This electronic medical record was generated, in whole or in part, using a voice recognition dictation system. Dragon Disclaimer This chart was dictated in whole or in part using Voice Recognition software in a busy, high-work load, and often noisy Emergency Department environment. It may contain unintended and wholly unrecognized errors or omissions. Dragon Disclaimer This chart was dictated in whole or in part using Voice Recognition software in a busy, high-work load, and often noisy Emergency Department environment. It may contain unintended and wholly unrecognized errors or omissions. Dragon Disclaimer This chart was dictated in whole or in part using Voice Recognition software in a busy, high-work load, and often noisy Emergency Department environment. It may contain unintended and wholly unrecognized errors or omissions. Dragon Disclaimer This chart was dictated in whole or in part using Voice Recognition software in a busy, high-work load, and often noisy Emergency Department environment. It may contain unintended and wholly unrecognized errors or omissions. RICCI TOLENTINO MD Mar 26, 2019 22:28
[2019-03-27] MEDS ORDERED: IV RINGERS SOLUTION,LACTATED 1,000 ML IV SCH (00:47)
[2019-03-27 00:51] LABS: BARBITURATES NEG (NEG); BENZODIAZEPINES NEG (NEG); CANNABINOIDS POS (NEG); COCAINE NEG (NEG); METHADONE NEG (NEG); OPIATES NEG (NEG); PHENCYCLIDINE NEG (NEG)
[2019-03-27 00:53] LABS: BACTERIA,URINE MOD /HPF (0-FEW); BILIRUBIN,URINE NEG (NEG); CLARITY,URINE HAZY; COLOR,URINE YELLOW; GLUCOSE,URINE NEG (NEG); NITRITE,URINE NEG (NEG); UROBILINOGEN,URINE 0.2 mg/dL (0.2 mg/dL)
[2019-03-27 00:54] LABS: SQUAMOUS EPITHELIAL CELL,UR MOD /LPF
[2019-03-27 00:56] LABS: AMPHETAMINE/METHAMPHETAMINE NEG (NEG)
[2019-03-27] MEDS ORDERED: HYDROcodone/APAP 5/325MG 1 TAB TABLET PO ONE (01:00)
[2019-03-27] MEDS ORDERED: ONDANSETRON PF 4 MG/2 ML VIAL. IV ONE (01:00)
[2019-03-27 01:37] LABS: BASO % 0 % (0-3); EOS # 0.1 x10^3/uL (0.0-0.7); EOS % 1 % (0-3); HEMATOCRIT 30.1 % (36.0-47.0); HEMOGLOBIN 9.8 g/dL (12.0-15.5); LYMPH # 1.6 x10^3/uL (1.0-4.8); LYMPH % 15 % (24-48); MEAN CORPUSCULAR HEMOGLOBIN 26 pg (25-35); MEAN CORPUSCULAR HGB CONC 33 g/dL (31-37); MEAN CORPUSCULAR VOLUME 81 fL (79-100); MONO # 0.6 x10^3/uL (0.0-1.1); MONO % 6 % (0-9); NEUT # 8.1 x10^3uL (1.8-7.7); NEUT % 77 % (31-73); PLATELET COUNT 302 x10^3/uL (140-400); RED BLOOD COUNT 3.72 x10^6/uL (3.50-5.40); RED CELL DISTRIBUTION WIDTH 15.4 % (11.5-14.5); WHITE BLOOD COUNT 10.5 x10^3/uL (4.0-11.0)
[2019-03-27 01:41] LABS: ALBUMIN 2.4 g/dL (3.4-5.0); CALCIUM 8.9 mg/dL (8.5-10.1); CREATININE 0.5 mg/dL (0.6-1.0); DIRECT BILIRUBIN 0.1 mg/dL (0.0-0.2); GFR 151.6; POTASSIUM 3.5 mmol/L (3.5-5.1); TOTAL BILIRUBIN 0.3 mg/dL (0.2-1.0); TOTAL PROTEIN 6.7 g/dL (6.4-8.2)
[2019-03-27 02:23] LABS: % BANDS 3 % (0-9); % EOS 2 % (0-5); % LYMPHS 18 % (24-48); % METAS 1 % (0-0); % MONOS 3 % (0-10); % SEGS 73 % (35-66)
[2019-03-27 02:24] LABS: ANISOCYTOSIS SLIGHT; HYPOCHROMIA SLIGHT; MICROCYTOSIS SLIGHT; PLT ESTIMATE ADEQUATE (ADEQUATE); POLYCHROMASIA SLIGHT; TOXIC GRANULATION MOD
[2019-03-27 02:25] LABS: HYPERSEGS PRESENT; OVALOCYTES OCC; TEAR DROP CELLS OCC
--- NOTE | 2019-03-27 02:56 | RAD ---
Examination: Obstetric ultrasound limited HISTORY: History of abdominal pain COMPARISON: None available FINDINGS: Single living intrauterine identified with heart rate of 157 bpm. movement, cardiac activity, 4 chamber heart seen. position is cephalic Amniotic fluid index is 6.5 cm. Biparietal diameter measures 8.7 cm corresponding to 35 weeks and 1 day. Abdominal circumference measures 30.8 cm corresponding to 34 weeks and 6 days Head circumference measures 30.1 cm corresponding to 33 weeks and 3 days. Head circumference to abdominal circumference ratio 0.98 Gestational age is 34 weeks and 3 days. The estimated date of delivery 05/05/2019 At the site of lump in the anterior abdominal wall there is a hernia measuring 4 cm in transverse dimension with the neck of the hernia measuring 7.7 mm in transverse dimension containing fat and fluid within. The hernia increases with Valsalva. IMPRESSION: 1. Single living intrauterine as described above. 2. At the site of lump in the anterior abdominal wall there is a hernia measuring 4 cm in transverse dimension with the neck of the hernia measuring 7.7 mm in transverse dimension containing fat and fluid within. Electronically signed by: Phil Razo MD (03/27/2019 2:53 AM) [facility]
[2019-03-27] MEDS ORDERED: OXYC1TAB15 PO (03:19)
[2019-03-27 03:25] VITALS: BP 138/89
[2019-03-27] MEDS ORDERED: ONDA8TAB9 PO (03:33)
== END 2019-03-27 03:33 | disposition home or self-care (01) ==
LOC: ER 22:25
DX: O26.893 Other specified pregnancy related conditions, third trimester (principal); K42.9 Umbilical hernia without obstruction or gangrene; O99.323 Drug use complicating pregnancy, third trimester; F12.10 Cannabis abuse, uncomplicated; O23.43 Unspecified infection of urinary tract in pregnancy, third trimester; Z3A.34 34 weeks gestation of pregnancy
CPT/HCPCS: 36415; 76815; 80048; 80076; 80307; 81001; 81025; 82150; 83690; 84702; 85007; 85025; 86900; 86901; 87086; 96374; 99285; J2405; J7120

== ENCOUNTER → 2020-11-01 | Outpatient (CLI) | payer OTHER ==
[~2020-11-01] MED LIST changes: +ONDA8TAB9 PO; +OXYC1TAB15 PO
--- NOTE | 2020-11-01 10:14 | RAD ---
EXAM: Left ankle, 3 views; left foot, 3 views; left tibia and fibula, 2 views. HISTORY: Pain. Fall. COMPARISON: None. FINDINGS: 3 views of the left foot and ankle and 2 views of the left tibia and fibula are obtained. T here is no fracture, dislocation or subluxation. The ankle mortise intact. There is no osteochondral lesion. There is no lytic or sclerotic osseous lesion. There is no periosteal reaction. No acute osse ous finding. IMPRESSION: Electronically signed by: Ansley Buckley MD (11/01/2020 10:12 AM) [id number]
== END ==
LOC: RAD 09:26
DX: S89.92XA Unspecified injury of left lower leg, initial encounter (principal); X58.XXXA Exposure to other specified factors, initial encounter; Y93.89 Activity, other specified; Y92.89 Other specified places as the place of occurrence of the external cause; Y99.8 Other external cause status
CPT/HCPCS: 73590; 73610; 73630

== ENCOUNTER 2020-11-17 12:38 | Emergency (ER) | payer OTHER ==
[~2020-11-17] VITALS: Ht 152.4 cm; Wt 59.0 kg
[2020-11-17 12:38] VITALS: BP 117/80
[2020-11-17] MEDS ORDERED: ONDANSETRON ODT 4 MG TAB.RAPDIS PO ONE (13:15)
--- NOTE | 2020-11-17 13:47 | RAD ---
CT brain without contrast, CT cervical spine without contrast. HISTORY: Fall, trauma, blunt head trauma CT brain CT scan of the brain was done without contrast. A skull fracture is not identified. Visualized sinuse s are clear. There is no intracranial hemorrhage or subdural hematoma. Ventricles are normal in size. There is no mass effect or shift of the midline. There are no abnormal areas of increased or decreas ed attenuation. IMPRESSION: 1. No intracranial hemorrhage or acute finding noted. End impression CT cervical spine Axial CT images were obtained through the cervical spine. Sagittal and coronal reconstructed images w ere reviewed. Thyroid is homogeneous. Lung apices are clear. A C-spine fracture is not identified. C- spine is in normal alignment. Disc spaces are normal in height. IMPRESSION: 1. No acute fracture noted in the cervical spine. PQRS Compliance Statement: One or more of the following individualized dose reduction techniques were utilized for this examinat ion: 1. Automated exposure control 2. Adjustment of the mA and/or kV according to patient size 3. Use of iterative reconstruction technique Electronically signed by: John Germain MD (11/17/2020 1:45 PM) [facility]
--- NOTE | 2020-11-17 13:52 | RAD ---
Pelvis one view. HISTORY: Fall Single view was taken of the pelvis. There is no pubic ramus fracture. Pelvis appears intact. A hip f racture is not identified. IMPRESSION: 1. No acute pelvic fracture. Electronically signed by: John Germain MD (11/17/2020 1:49 PM) [facility]
[2020-11-17] MEDS ORDERED: IBUP600T16 PO (14:38)
[2020-11-17] MEDS ORDERED: METO10TA81 PO (14:38)
[2020-11-17] MEDS ORDERED: CYCL-331 PO (14:38)
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
== END 2020-11-17 14:50 | disposition home or self-care (01) ==
LOC: ER 12:38
DX: F07.81 Postconcussional syndrome (principal); R51.9 Headache, unspecified; M54.2 Cervicalgia; F12.10 Cannabis abuse, uncomplicated
CPT/HCPCS: 70450; 72125; 72170; 99285; Q0162